=== PATIENT | female | born 1990 | race Caucasian/White ===

== ENCOUNTER → 2025-07-19 10:39 | Outpatient (BNVA) | payer OTHER, SELFPAY | PROVIDERS: Visit Provider Physician Assistant | DX: Z13.89 Encounter for screening for other disorder (principal) | CPT/HCPCS: 99203 ==

== ENCOUNTER → 2025-07-27 09:13 | Outpatient (BNVA) | payer OTHER, SELFPAY | PROVIDERS: Visit Provider Physician Assistant | DX: Z13.89 Encounter for screening for other disorder (principal) | CPT/HCPCS: 99213 ==

== ENCOUNTER 2025-08-14 08:25 | Outpatient (REF) | payer OTHER, SELFPAY ==
--- OUTSIDE RECORDS SUMMARY | 2025-08-14 09:08 | XMS_ITS ---
Author Name [facility] Organization Unknown Care Team Organization Name Specialty Phone Email Start Date End Da te [facility] Ya Church Primary Care 06/24/[address] [facility] Danica Escalera Primary Care 08/25/2022 4
--- OUTSIDE RECORDS SUMMARY | 2025-08-14 09:08 | XMS_ITS | Encounter Summary ---
Author Organization [facility] Address [address] [place] [address] Care Team Providers Care Manager Audit Name Role Phone Ya Church MD Primary Care Provider [phone] Encounter Details Date Type Department Care Team ([facility] st Contact Info) Description 06/30/2025 Lab Requisition [facility] [address] [place] [address] [phone] Ronan Fall MD [address] [place] [address] Other general symptoms and signs Social History Tobacco Use Types Packs/Day Years Used Date Smoking Tobacco: Every Day Cigarettes 0.1 19.8 Started: 2005 Passive Smoke Exposure: Never Smokeless Tobacco: Never Alcohol Use Standard Drinks/Week Comments Yes 0 (1 standard drink = 0.6 oz pur e alcohol) Housing Instability Answer Date Recorde d Are you worried that in the next 2 months you may not have stable housing? No 03/01/2025 Food Access & Nutrition Answer Date Rec orded Do you have access to a vari ety of food including fruits and vegetables? No 03/01/2025 Access to Healthcare Answer Date Record ed Within the last 3 months, ho w many times did you visit the emergency department for your medical care? 0 03/01/2025 Health Literacy Answer Date Recorded How often do you need to hav e someone help you when you read instructions, pamphlets, or other written material from your doctor or pharmacy? Never 03/01/2025 Caregiver: How often do you need to have someone help you when you read instructions, pamphlets, or other written material from your doctor or pharmacy? Not on file 03/01/2025 Financial Risk Answer Date Recorded How hard is it for you to pa y for the very basics like food, housing, medical care, and air conditioning / heating? Very hard 03/01/2025 Transportation Answer Date Recorded Has the lack of transportati on kept you from meetings, work, or from getting things needed for daily living? No Has the lack of transportati on kept you from medical appointments or from getting medications? No 03/01/2025 Social Isolation Answer Date Recorded How often do you feel lonely or isolated from ose around you? Never 03/01/2025 Food Risk Answer Date Recorded Within the past 12 months we worried whether our food would run out before we got money to buy more. Never true 03/01/2025 Within the past 12 months th e food we bought just didn't last and we didn't have money to get more. Never true 03/01/2025 Dependent Care Answer Date Recorded Do you need help finding or paying for care for your loved ones. For example, childcare teacher or elderly care for an older adult? No 03/01/2025 Education Answer Date Recorded Do you think completing more education or training, like finishing a GED, going to college, or learning a trade, would be helpful for you? No 03/01/2025 Employment and Income Answer Date Recor ded During the last four weeks, have you been actively looking for work? No 03/01/2025 Living Situation Answer Date Recorded What is your living situation? Unrecognized valu e 03/01/2025 Comments No Sex and Gender Information Value Date Recorded Sex Assigned at Not on file Legal Sex Female 6:13 PM EST Gender Identity Not on file Sexual Orientation Not on file documented as of this encounter Plan of Treatment Upcoming Encounters Date Type Department Care Team (Late st Contact Info) Description 08/30/2025 8:30 AM EST Office Visit Bariatric Surgery - [address] [place] [address] Codi Vargas MD [address] [place] [phone] 09/11/2025 4:30 PM EST Office Visit Adult Medicine [address] [phone] Ya Church MD [address] [place], [place] documented as of this encounter Procedures Procedure Name Priority Date/Time Associated Diagnosis Comments CBC WITH AUTO DIFFERENTIAL Routine 06/30/2025 11:00 AM EDT Other general symptoms and signs CBC AND DIFFERENTIAL Routine 06/30/2025 11:00 AM EDT Other general symptoms and signs CHOLESTEROL, TOTAL Routine 06/30/2025 11 :00 AM EDT Other general symptoms and signs COMPREHENSIVE METABOLIC PANEL Routine 06/30/2025 11:00 AM EDT Other general symptoms and signs documented in this encounter Results * CBC auto differential (06/30/2025 11:00 AM EDT) WBC LAB HEMETOLOGY METHOD 07/02/2025 2:00 PM EDT [facility] Comment:Corrected result: Pr eviously reported as 6.2 K/mcL on 06/30/2025 at 1442 EDT. RBC LAB HEMETOLOGY METHOD 07/02/2025 2:00 PM EDT [facility] Comment: Incorrect patient Corrected result: Previously reported as 4.92 M/mcL on 06/30/2025 at 1442 EDT. Hemoglobin LAB HEMETOLOGY METHOD 07/02/2025 2:00 PM EDT [facility] Comment: Incorrect patient Corrected result: Previously reported as 14.9 g/dL on 06/30/2025 at 1442 EDT. Hematocrit LAB HEMETOLOGY METHOD 07/02/2025 2:00 PM EDT [facility] Comment: Incorrect patient Corrected result: Previously reported as 44.0 % on 06/30/2025 at 1442 EDT. MCV LAB HEMETOLOGY METHOD 07/02/2025 2:00 PM EDT [facility] Comment: Incorrect patient Corrected result: Previously reported as 89.3 FL on 06/30/2025 at 1442 EDT. MCH LAB HEMETOLOGY METHOD 07/02/2025 2:00 PM EDT [facility] Comment: Incorrect patient Corrected result: Previously reported as 30.3 pcg on 06/30/2025 at 1442 EDT. MCHC LAB HEMETOLOGY METHOD 07/02/2025 2:00 PM EDT [facility] Comment: Incorrect patrient Corrected result: Previously reported as 34.0 g/dL on 06/30/2025 at 1442 EDT. RDW LAB HEMETOLOGY METHOD 07/02/2025 2:00 PM EDT [facility] Comment: Incorrect patient Corrected result: Previously reported as 13.7 % on 06/30/2025 at 1442 EDT. Platelets LAB HEMETOLOGY METHOD 07/02/2025 2:00 PM EDT [facility] Comment: Incorrect patient Corrected result: Previously reported as 308 K/mcL on 06/30/2025 at 1442 EDT. MPV LAB HEMETOLOGY METHOD 07/02/2025 2:00 PM EDT [facility] Comment: Incorrect patient Corrected result: Previously reported as 8.4 FL on 06/30/2025 at 1442 EDT. Neutrophils Relative LAB HEMETOLOGY METHOD 07/02/2025 2:00 PM EDT [facility] Comment:Corrected result: Pr eviously reported as 54.6 % on 06/30/2025 at 1442 EDT. Lymphocytes Relative LAB HEMETOLOGY METHOD 07/02/2025 2:00 PM EDT [facility] Comment:Corrected result: Pr eviously reported as 34.1 % on 06/30/2025 at 1442 EDT. Monocytes Relative LAB HEMETOLOGY METHOD 07/02/2025 2:00 PM EDT [facility] Comment:Corrected result: Pr eviously reported as 7.6 % on 06/30/2025 at 1442 EDT. Eosinophils Relative LAB HEMETOLOGY METHOD 07/02/2025 2:00 PM EDT [facility] Comment:Corrected result: Pr eviously reported as 3.2 % on 06/30/2025 at 1442 EDT. Basophils Relative LAB HEMETOLOGY METHOD 07/02/2025 2:00 PM EDT [facility] Comment:Corrected result: Pr eviously reported as 0.5 % on 06/30/2025 at 1442 EDT. Neutrophils Absolute LAB HEMETOLOGY METHOD 07/02/2025 2:00 PM EDT [facility] Comment:Corrected result: Pr eviously reported as 3.40 K/mcL on 06/30/2025 at 1442 EDT. Lymphocytes Absolute LAB HEMETOLOGY METHOD 07/02/2025 2:00 PM EDT [facility] Comment:Corrected result: Pr eviously reported as 2.10 K/mcL on 06/30/2025 at 1442 EDT. Monocytes Absolute LAB HEMETOLOGY METHOD 07/02/2025 2:00 PM EDT [facility] Comment:Corrected result: Pr eviously reported as 0.50 K/mcL on 06/30/2025 at 1442 EDT. Eosinophils Absolute LAB HEMETOLOGY METHOD 07/02/2025 2:00 PM EDT [facility] Comment:Corrected result: Pr eviously reported as 0.20 K/mcL on 06/30/2025 at 1442 EDT. Basophils Absolute LAB HEMETOLOGY METHOD 07/02/2025 2:00 PM EDT [facility] Comment:Corrected result: Pr eviously reported as 0.00 K/mcL on 06/30/2025 at 1442 EDT. Blood Venous blood specimen / Unknown Venipuncture / Unknown 06/30/2025 11:00 AM EDT 06/30/2025 2:25 PM EDT Narrative [facility] - 07/02/2025 2:00 PM EDT This is a modified report. Previous result was Hemogram + Auto diff on 06/30/2025 at 1442 EDT Ronan Fall MD LAB BLOOD ORDERABLES Edited Result - Final Performing Organization Address [facility] Co de Phone Number [facility] [address] [place] [address], [place] [phone] * Cholesterol, total (06/30/2025 11:00 AM EDT) Cholesterol LAB CHEMISTRY METHOD 07/02/2025 2:25 PM EDT [facility] Comment: Incorrect patient Corrected result: Previously reported as 246 mg/dL on 07/02/2025 at 1408 EDT. Blood Venous blood specimen / Unknown Venipuncture / Unknown 06/30/2025 11:00 AM EDT 06/30/2025 2:25 PM EDT Ronan Fall MD LAB BLOOD ORDERABLES Edited Result - Final Performing Organization Address [facility]/ZIP Co de Phone Number [facility] [address] [place] [address], [place] [phone] * Comprehensive metabolic panel (06/30/2025 11:00 AM EDT) Sodium LAB CHEMISTRY METHOD 07/02/2025 2:14 PM EDT [facility] Comment: Incorrect patient Corrected result: Previously reported as 139 mmol/L on 07/02/2025 at 1408 EDT. Potassium LAB CHEMISTRY METHOD 07/02/2025 2:14 PM EDT [facility] Comment: Specimen Hemolyzed. Recommend Redraw If Clinically Indicated. Corrected result: Previously reported as 4.9 mmol/L on 07/02/2025 at 1408 EDT. Chloride LAB CHEMISTRY METHOD 07/02/2025 2:14 PM EDT [facility] Comment: Incorrect patient Corrected result: Previously reported as 105 mmol/L on 07/02/2025 at 1408 EDT. CO2 LAB CHEMISTRY METHOD 07/02/2025 2:14 PM EDT [facility] Comment: Incorrect patient Corrected result: Previously reported as 28 mmol/L on 07/02/2025 at 1408 EDT. Anion Gap LAB CHEMISTRY METHOD 07/02/2025 2:14 PM EDT [facility] Comment: Incorrect patient Corrected result: Previously reported as 6 on 07/02/2025 at 1408 EDT. Glucose LAB CHEMISTRY METHOD 07/02/2025 2:14 PM EDT [facility] Comment: Specimen Hemolyzed. Recommend Redraw If Clinically Indicated. Corrected result: Previously reported as 92 mg/dL on 07/02/2025 at 1408 EDT. BUN LAB CHEMISTRY METHOD 07/02/2025 2:14 PM EDT [facility] Comment: Incorrect patient Corrected result: Previously reported as 9 mg/dL on 07/02/2025 at 1408 EDT. Creatinine LAB CHEMISTRY METHOD 07/02/2025 2:14 PM EDT [facility] Comment: Incorrect patient Corrected result: Previously reported as 0.40 mg/dL on 07/02/2025 at 1408 EDT. eGFR LAB CHEMISTRY METHOD 07/02/2025 2:14 PM EDT [facility] Comment: Calculation based on the Chronic Kidney Disease Epidemiology Collaboration (CKD- EPI) equation refit without adjustment for race. Corrected result: Previously reported as 131 mL/min/1.73m2 on 07/02/2025 at 1408 EDT. BUN/Creatinine Ratio LAB CHEMISTRY METHOD 07/02/2025 2:14 PM EDT [facility] Comment: Incorrect patient Corrected result: Previously reported as 22.5 on 07/02/2025 at 1408 EDT. Calcium LAB CHEMISTRY METHOD 07/02/2025 2:14 PM EDT [facility] Comment: Incorrect patient Corrected result: Previously reported as 9.9 mg/dL on 07/02/2025 at 1408 EDT. AST (SGOT) LAB CHEMISTRY METHOD 07/02/2025 2:14 PM EDT [facility] Comment: Specimen Hemolyzed. Recommend Redraw If Clinically Indicated. Corrected result: Previously reported as 38 unit/L on 07/02/2025 at 1408 EDT. ALT (SGPT) LAB CHEMISTRY METHOD 07/02/2025 2:14 PM EDT [facility] Comment: Incorrect patient Corrected result: Previously reported as 35 unit/L on 07/02/2025 at 1408 EDT. Alkaline Phosphatase LAB CHEMISTRY METHOD 07/02/2025 2:14 PM EDT [facility] Comment: Incorrect patient Corrected result: Previously reported as 99 unit/L on 07/02/2025 at 1408 EDT. Total Protein LAB CHEMISTRY METHOD 07/02/2025 2:14 PM EDT [facility] Comment: Incorrect patient Corrected result: Previously reported as 7.7 g/dL on 07/02/2025 at 1408 EDT. Globulin, Total LAB CHEMISTRY METHOD 07/02/2025 2:14 PM EDT [facility] Comment: Incorrect patient Corrected result: Previously reported as 3.1 g/dL on 07/02/2025 at 1408 EDT. A/G Ratio LAB CHEMISTRY METHOD 07/02/2025 2:14 PM EDT [facility] Comment: Incorrect patient Corrected result: Previously reported as 1.5 on 07/02/2025 at 1408 EDT. Total Bilirubin LAB CHEMISTRY METHOD 07/02/2025 2:14 PM EDT [facility] Comment: Specimen Hemolyzed. Recommend Redraw If Clinically Indicated. Corrected result: Previously reported as 0.6 mg/dL on 07/02/2025 at 1408 EDT. Albumin LAB CHEMISTRY METHOD 07/02/2025 2:14 PM EDT [facility] Comment: Incorrect patient Corrected result: Previously reported as 4.6 g/dL on 07/02/2025 at 1408 EDT. Blood Venous blood specimen / Unknown Venipuncture / Unknown 06/30/2025 11:00 AM EDT 06/30/2025 2:25 PM EDT Ronan Fall MD LAB BLOOD ORDERABLES Edited Result - Final [facility] [address] [place] [address], documented in this encounter Visit Diagnoses Diagnosis Other general symptoms and signs documented in this encounter Additional Health Concerns Assessment Noted Time PHQ-9 Depression Total Score: 0 03/01/20 9:38 AM EDT documented as of this encounter Care Teams Manager Audit Relationship Specialty Start Date End Date Ya Church MD [address] [place] [phone] PCP - General Internal Medicine 03/01/25 documented as of this encounter
--- OUTSIDE RECORDS SUMMARY | 2025-08-14 09:08 | XMS_ITS | Clinical Summary ---
Author Organization 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 APPLY TOPICALLY 2 TIMES DAILY 60 mL 1 5 Active ciclopirox (PENLAC) 8 % solution Clean the nails with alcohol wipe and apply solution on to the nails and leave it for 7 days. Apply it every 7 days 6.6 mL 5 Active tirzepatide, weight loss, (Zepbound) 10 mg/0.5 mL injection Inject 0.5 mL (10 mg total) under the skin every 7 (seven) days. 2 mL 5 09/07/20 25 Active tirzepatide, weight loss, (Zepbound) 7.5 mg/0.5 mL injection Inject 0.5 mL (7.5 mg total) under the skin every 7 (seven) days. 2 mL 5 07/30/20 25 Discontinu ed(Reorder ) tirzepatide, weight loss, (Zepbound) 7.5 mg/0.5 mL injection Inject 0.5 mL (7.5 mg total) under the skin every 7 (seven) days. 2 mL 5 08/08/20 25 Discontinu ed(Dose adjustment ) Active Problems Problem Noted Date Diagnosed Date Class 2 obesity 07/10/2025 Tobacco use disorder 10/08/2024 Depressive disorder 10/08/2024 Encounters Date Type Department Care Team Description 08/02/2025 Telephone Bariatric Surgery - [address] [place] [address] Codi Vargas MD 06/30/2025 Lab Requisition [facility] [address] [place] [address] ELIGIO Pastrana [phone] Ronan Fall MD Other general symptoms and signs from Last 3 Months Immunizations Immunization Administration Dates Next Due DTP 09/01/1992, 0,09/01/1989,1987,1988 [id number] (Pentacel) 2mo to less than 5yo 09/01/1989 Hepatitis B (Lnomfgf-E-Fkpvg , Recombivax HB-Adult) 19yo and older 04/23/2021,07/14/2001,03/01/2001,2000 Hepatitis B Pediatric (Enger ix B; Recombivax HB) to less than 20 yo 07/14/2001,03/01/2001,01/25/2001 HiB 09/01/1989 Influenza Quadrivalent, 0.5m l, preservative free (Fluarix; FluLaval; Fluzone) ages 6mo and older (Afluria) 3yo and older 07/20/2023,08/24/2022,09/04/2021,2015 Influenza trivalent, 0.5mL, preservative free (Fluarix; FluLaval; Fluzone) ages 6mo and older (Afluria) 3 years and older 07/06/2024,07/22/2011 Influenza trivalent, MDCK, 0 .5mL, preservative free (Flucelvax) 6mo and older 07/08/2025 Influenza trivalent, with preservative (Fluzone; Afluria) 6mo and older 07/22/2011 MMR, measles mumps and rubel la Live (Priorix; M-M-R II) 12mo and older 09/01/1992,09/01/1989 OPV 11/01/1989, 9,1988,1987 PPD Test 09/25/2020,03/06/2015,07/05/2006 Pfizer SARS-CoV-2 COVID-19, mRNA, LNP-S, preservative free 05/18/2021,04/17/2021 Polio, Unspecified 11/01/1989, 9,1988,1987 Td Tetanus diptheria (Tdvax) 7yo and older 01/25/2001 Td, Unspecified 01/25/2001 Tdap Tetanus diptheria acell ular pertussis (Boostrix; Adacel) 7yo and older 01/02/2023,04/02/2020,05/11/2014 Surgical History Surgery Date Site/Laterality Comments CHOLECYSTECTOMY 06/14/2012 PROCEDURE: HISTORICAL CHOLECYSTECTOMY; COMMENT: Dr Son Simpson TUBAL LIGATION Bilateral PROCEDURE: HISTORICAL TUBAL LIGATION PARTIAL HYSTERECTOMY 07/18/2024 - 08/17/2024 Medical History Medical History Date Comments Varicella without mention of complication DX:Varicella without mention of complication Depressive disorder, not els ewhere classified DX:Depressive disorder, not elsewhere classified Tobacco use disorder DX:Tobacco use disorder Type O blood, Rh negative 2019 DX:Typ e O blood, Rh negative Family History Medical History Relation Name Comments No Known Problems Brother 1 No Known Problems Brother 2 Diabetes Father Heart attack Father's side uncle in 30s; other uncle in 50s Alcohol abuse Maternal Grandfather Other: lymphoma Maternal Grandmother ? emmanuel ne cancer Ovarian cancer Maternal Grandmother Thyroid cancer Maternal Grandmother Thyroid disease Mother Alcohol/Drug Other 1 MATERNAL & [place] RNAL SIDE Lung cancer Other 2 greatgrandmothe r;smoker Diabetes Paternal Grandfather Diabetes Paternal Grandmother Lung cancer Paternal Grandmother No Known Problems Sister Breast cancer Neg Hx Colon cancer Neg Hx Uterine cancer Neg Hx Relation Name Status Comments Brother 1 Alive Brother 2 Alive Father Alive Father's side Maternal Grandfather Maternal Grandmother Alive Mother Alive Other 1 Other 2 Paternal Grandfather Paternal Grandmother Sister Alive Social History Tobacco Use Types Packs/Day Years Used Date Smoking Tobacco: Every Day Cigarettes 0.1 19.8 Started: 2006 Passive Smoke Exposure: Never Smokeless Tobacco: Never Tobacco Cessation:Ready to Q uit: Not Asked; Counseling Given: Not Answered Alcohol Use Standard Drinks/Week Comments Yes 0 [...] do you feel lonely or isolated from th ose around you? Never 03/01/2025 Food Risk [...] care for your loved ones. For example, child caregiver private home or elderly care for an older adult? [...] on file Sexual Orientation Not on file Obstetrics History Last Filed Vital Signs Vital Sign Reading Time Taken Comments Blood Pressure 116/70 05/10/2025 1:25 PM EDT Pulse 86 05/10/2025 1:25 PM EDT Temperature 35.9 C (96.6 F) 05/10/2025 1:25 PM EDT Respiratory Rate 18 05/10/2025 1:25 PM EDT Oxygen Saturation - - Inhaled Oxygen Concentration - - Weight 95.7 kg (211 lb) 05/10/2025 1:25 PM EDT Height 152.4 cm (5') 05/10/2025 1:25 PM EDT Body Mass Index 41.21 05/10/2025 1:25 PM EDT Plan of Treatment Upcoming Encounters Date Type Department Care Team (Late st Contact Info) Description 08/30/2025 8:30 AM EST Office Visit Bariatric Surgery - [address] [place] [address] Codi Vargas MD [address] [place] [phone] 09/11/2025 4:30 PM EST Office Visit Adult Medicine [address] [phone] Ya Church MD [address] [place] [phone] Health Maintenance Due Date Last Done Comments Pneumococcal Vaccine: Pediatrics (0 to 5 Years) and At-Risk Patients (6 to 49 Years) (1 of 2 - PCV) 01/16/2007 HPV Vaccines (1 - 3-dose SCDM series) 01/16/2015 COVID-19 Vaccine ( season) 2025 03/26/2022, 05/18/2021, 04/17/2021, Additional history exists Social Influencers of Health Screening 03/01/2026 03/01/2025 Cholesterol Screening (Lipid Panel) 06/30/2030 06/30/2025, 03/01/2025, 02/02/2023 DTaP,Tdap,and Td Vaccines (10 - Td or Tdap) 01/02/2033 01/02/2023, 04/02/2020, 05/11/2014, Additional history exists RSV Immunization Adult Patients (1 - 1-dose 75+ series) 01/16/2063 HIB Vaccines Completed 09/01/1989, 09/01/1989 IPV Vaccines Completed 11/01/1989, 10/18, 09/01/1989, Additional history exists MMR Vaccines Completed 09/01/1992, 09/01/1989 Hepatitis C Screening Completed 07/01/2017 HIV Screening Completed 10/23/2019 Hepatitis B Vaccines Completed 04/23/2021, 07/14/2001, 07/14/2001, Additional history exists Cervical Cancer Screening: Pap Smear Discontinued 10/26/2022, 11/23/2019 Depression Screening Completed 03/01/2025, 02/03/20 23 Influenza Vaccine Completed 07/08/2025, , 07/20/2023, Additional history exists Hepatitis A Vaccines Aged Out No long er eligible based on patient's age to complete this topic Meningococcal ACWY Vaccine Aged Out N o longer eligible based on patient's age to complete this topic Meningococcal B Vaccine Aged Out No l onger eligible based on patient's age to complete this topic RSV Immunization Patients Under 20 months Aged Out No longer eligible based on patient's age to complete this topic Varicella Vaccines Aged Out No longer eligible based on patient's age to complete this topic Procedures Procedure Name Priority Date/Time Associated Diagnosis Comments CBC WITH AUTO DIFFERENTIAL Routine 06/30/2025 11:00 AM EDT Other general symptoms and signs CBC AND DIFFERENTIAL Routine 06/30/2025 11:00 AM EDT Other general symptoms and signs CHOLESTEROL, TOTAL Routine 06/30/2025 11 :00 AM EDT Other general symptoms and signs COMPREHENSIVE METABOLIC PANEL Routine 06/30/2025 11:00 AM EDT Other general symptoms and signs DEPRESSION SCREENING Routine 02/02/2023 PAP SMEAR Routine 10/26/2022 HIV SCREENING Routine 10/23/2019 HEPATITIS C SCREENING Routine 07/01/2017 from Last 3 Months or Most Recently Relevant to Health Maintenance Results * CBC auto differential (06/30/2025 11:00 AM EDT) WBC LAB HEMETOLOGY METHOD 07/02/2025 2:00 PM EDT [facility] Comment:Corrected result: Pr eviously reported as 6.2 K/mcL on 06/30/2025 at 1442 EDT. RBC LAB HEMETOLOGY METHOD 07/02/2025 2:00 PM EDT [facility] Comment: Incorrect patient Corrected result: Previously reported as 4.92 M/mcL on 06/30/2025 at 1442 EDT. Hemoglobin LAB HEMETOLOGY METHOD 07/02/2025 2:00 PM EDT [facility] Comment: Incorrect patient Corrected result: Previously reported as 14.9 g/dL on 06/30/2025 at 1442 EDT. Hematocrit LAB HEMETOLOGY METHOD 07/02/2025 2:00 PM EDT [facility] Comment: Incorrect patient Corrected result: Previously reported as 44.0 % on 06/30/2025 at 1442 EDT. MCV LAB HEMETOLOGY METHOD 07/02/2025 2:00 PM EDT [facility] Comment: Incorrect patient Corrected result: Previously reported as 89.3 FL on 06/30/2025 at 1442 EDT. MCH LAB HEMETOLOGY METHOD 07/02/2025 2:00 PM EDT [facility] Comment: Incorrect patient Corrected result: Previously reported as 30.3 pcg on 06/30/2025 at 1442 EDT. MCHC LAB HEMETOLOGY METHOD 07/02/2025 2:00 PM EDT [facility] Comment: Incorrect patrient Corrected result: Previously reported as 34.0 g/dL on 06/30/2025 at 1442 EDT. RDW LAB HEMETOLOGY METHOD 07/02/2025 2:00 PM EDT [facility] Comment: Incorrect patient Corrected result: Previously reported as 13.7 % on 06/30/2025 at 1442 EDT. Platelets LAB HEMETOLOGY METHOD 07/02/2025 2:00 PM EDT [facility] Comment: Incorrect patient Corrected result: Previously reported as 308 K/mcL on 06/30/2025 at 1442 EDT. MPV LAB HEMETOLOGY METHOD 07/02/2025 2:00 PM EDT [facility] Comment: Incorrect patient Corrected result: Previously reported as 8.4 FL on 06/30/2025 at 1442 EDT. Neutrophils Relative LAB HEMETOLOGY METHOD 07/02/2025 2:00 PM EDT [facility] Comment:Corrected result: Pr eviously reported as 54.6 % on 06/30/2025 at 1442 EDT. Lymphocytes Relative LAB HEMETOLOGY METHOD 07/02/2025 2:00 PM EDT [facility] Comment:Corrected result: Pr eviously reported as 34.1 % on 06/30/2025 at 1442 EDT. Monocytes Relative LAB HEMETOLOGY METHOD 07/02/2025 2:00 PM EDT [facility] Comment:Corrected result: Pr eviously reported as 7.6 % on 06/30/2025 at 1442 EDT. Eosinophils Relative LAB HEMETOLOGY METHOD 07/02/2025 2:00 PM EDT [facility] Comment:Corrected result: Pr eviously reported as 3.2 % on 06/30/2025 at 1442 EDT. Basophils Relative LAB HEMETOLOGY METHOD 07/02/2025 2:00 PM EDT [facility] Comment:Corrected result: Pr eviously reported as 0.5 % on 06/30/2025 at 1442 EDT. Neutrophils Absolute LAB HEMETOLOGY METHOD 07/02/2025 2:00 PM EDT [facility] Comment:Corrected result: Pr eviously reported as 3.40 K/mcL on 06/30/2025 at 1442 EDT. Lymphocytes Absolute LAB HEMETOLOGY METHOD 07/02/2025 2:00 PM EDT [facility] Comment:Corrected result: Pr eviously reported as 2.10 K/mcL on 06/30/2025 at 1442 EDT. Monocytes Absolute LAB HEMETOLOGY METHOD 07/02/2025 2:00 PM EDT [facility] Comment:Corrected result: Pr eviously reported as 0.50 K/mcL on 06/30/2025 at 1442 EDT. Eosinophils Absolute LAB HEMETOLOGY METHOD 07/02/2025 2:00 PM EDT [facility] Comment:Corrected result: Pr eviously reported as 0.20 K/mcL on 06/30/2025 at 1442 EDT. Basophils Absolute LAB HEMETOLOGY METHOD 07/02/2025 2:00 PM EDT [facility] Comment:Corrected result: Pr eviously reported as 0.00 K/mcL on 06/30/2025 at 1442 EDT. Blood Venous blood specimen / Unknown Venipuncture / Unknown 06/30/2025 11:00 AM EDT 06/30/2025 2:25 PM EDT Narrative [facility] - 07/02/2025 2:00 PM EDT This is a modified report. Previous result was Hemogram + Auto diff on 06/30/2025 at 1442 EDT Ronan Fall MD LAB BLOOD ORDERABLES Edited Result - Final Performing Organization Address [facility]/ZIP Co de Phone Number [facility] [address] [place] [address], [place] [phone] * Cholesterol, total (06/30/2025 11:00 AM EDT) [facility] Cholesterol LAB CHEMISTRY METHOD 07/02/2025 2:25 PM EDT [facility] Comment: Incorrect patient Corrected result: Previously reported as 246 mg/dL on 07/02/2025 at 1408 EDT. Blood Venous blood specimen / Unknown Venipuncture / Unknown 06/30/2025 11:00 AM EDT 06/30/2025 2:25 PM EDT Ronan Fall MD LAB BLOOD ORDERABLES Edited Result - Final Performing Organization Address [facility]/ZIP Co de Phone Number [facility] [address] [place] [address], [place] [phone] * Comprehensive metabolic panel (06/30/2025 11:00 AM EDT) [facility] Sodium LAB CHEMISTRY METHOD 07/02/2025 2:14 PM EDT [facility] Comment: Incorrect patient Corrected result: Previously reported as 139 mmol/L on 07/02/2025 at 1408 EDT. Potassium LAB CHEMISTRY METHOD 07/02/2025 2:14 PM EDT [facility] Comment: Specimen Hemolyzed. Recommend Redraw If Clinically Indicated. Corrected result: Previously reported as 4.9 mmol/L on 07/02/2025 at 1408 EDT. Chloride LAB CHEMISTRY METHOD 07/02/2025 2:14 PM EDT [facility] Comment: Incorrect patient Corrected result: Previously reported as 105 mmol/L on 07/02/2025 at 1408 EDT. CO2 LAB CHEMISTRY METHOD 07/02/2025 2:14 PM EDT [facility] Comment: Incorrect patient Corrected result: Previously reported as 28 mmol/L on 07/02/2025 at 1408 EDT. Anion Gap LAB CHEMISTRY METHOD 07/02/2025 2:14 PM EDT [facility] Comment: Incorrect patient Corrected result: Previously reported as 6 on 07/02/2025 at 1408 EDT. Glucose LAB CHEMISTRY METHOD 07/02/2025 2:14 PM EDT [facility] Comment: Specimen Hemolyzed. Recommend Redraw If Clinically Indicated. Corrected result: Previously reported as 92 mg/dL on 07/02/2025 at 1408 EDT. BUN LAB CHEMISTRY METHOD 07/02/2025 2:14 PM EDT [facility] Comment: Incorrect patient Corrected result: Previously reported as 9 mg/dL on 07/02/2025 at 1408 EDT. Creatinine LAB CHEMISTRY METHOD 07/02/2025 2:14 PM EDT [facility] Comment: Incorrect patient Corrected result: Previously reported as 0.40 mg/dL on 07/02/2025 at 1408 EDT. eGFR LAB CHEMISTRY METHOD 07/02/2025 2:14 PM EDT [facility] Comment: Calculation based on the Chronic Kidney Disease Epidemiology Collaboration (CKD- EPI) equation refit without adjustment for race. Corrected result: Previously reported as 131 mL/min/1.73m2 on 07/02/2025 at 1408 EDT. BUN/Creatinine Ratio LAB CHEMISTRY METHOD 07/02/2025 2:14 PM EDT [facility] Comment: Incorrect patient Corrected result: Previously reported as 22.5 on 07/02/2025 at 1408 EDT. Calcium LAB CHEMISTRY METHOD 07/02/2025 2:14 PM EDT [facility] Comment: Incorrect patient Corrected result: Previously reported as 9.9 mg/dL on 07/02/2025 at 1408 EDT. AST (SGOT) LAB CHEMISTRY METHOD 07/02/2025 2:14 PM EDT [facility] Comment: Specimen Hemolyzed. Recommend Redraw If Clinically Indicated. Corrected result: Previously reported as 38 unit/L on 07/02/2025 at 1408 EDT. ALT (SGPT) LAB CHEMISTRY METHOD 07/02/2025 2:14 PM EDT [facility] Comment: Incorrect patient Corrected result: Previously reported as 35 unit/L on 07/02/2025 at 1408 EDT. Alkaline Phosphatase LAB CHEMISTRY METHOD 07/02/2025 2:14 PM EDT [facility] Comment: Incorrect patient Corrected result: Previously reported as 99 unit/L on 07/02/2025 at 1408 EDT. Total Protein LAB CHEMISTRY METHOD 07/02/2025 2:14 PM EDT [facility] Comment: Incorrect patient Corrected result: Previously reported as 7.7 g/dL on 07/02/2025 at 1408 EDT. Globulin, Total LAB CHEMISTRY METHOD 07/02/2025 2:14 PM EDT [facility] Comment: Incorrect patient Corrected result: Previously reported as 3.1 g/dL on 07/02/2025 at 1408 EDT. A/G Ratio LAB CHEMISTRY METHOD 07/02/2025 2:14 PM EDT [facility] Comment: Incorrect patient Corrected result: Previously reported as 1.5 on 07/02/2025 at 1408 EDT. Total Bilirubin LAB CHEMISTRY METHOD 07/02/2025 2:14 PM EDT [facility] Comment: Specimen Hemolyzed. Recommend Redraw If Clinically Indicated. Corrected result: Previously reported as 0.6 mg/dL on 07/02/2025 at 1408 EDT. Albumin LAB CHEMISTRY METHOD 07/02/2025 2:14 PM EDT [facility] Comment: Incorrect patient Corrected result: Previously reported as 4.6 g/dL on 07/02/2025 at 1408 EDT. Blood Venous blood specimen / Unknown Venipuncture / Unknown 06/30/2025 11:00 AM EDT 06/30/2025 2:25 PM EDT Ronan Fall MD LAB BLOOD ORDERABLES Edited Result - Final [facility] [address] [place] [address], * Depression Screening (02/02/2023) Pathologist [facility] Depression Screening abstracted Historical Provider HEALTH MAINTENANCE Final Result * Pap Smear (10/26/2022) Pathologist [facility] Pap smear abstracted, no interpretation Result [facility] Historical Provider HEALTH MAINTENANCE Final Result * HIV Screening (10/23/2019) [facility] HIV Screening abstracted Result [facility] Historical Provider HEALTH MAINTENANCE Final Result * Hepatitis C Screening (07/01/2017) [facility] Hepatitis C Screening abstracted Historical Provider HEALTH MAINTENANCE Final Result from Last 3 Months or Most Recently Relevant to Health Maintenance Insurance [facility] Care Teams Cattle Rancher Relationship Specialty Start Date End Date Ya Church MD [address] [place] [phone] PCP - General Internal Medicine 03/01/25
[2025-08-15 03:58] LABS: Follicle Stimulating Hormone 54.1 mIU/mL
[2025-08-30 04:23] LABS: Estradiol Free 0.14 pg/mL; Estradiol, Ultrasensitive 9 pg/mL
== END 2025-08-14 08:26 | disposition home or self-care (01) ==
LOC: HO.HKASLDS 08:25
PROVIDERS: PCP Internal Medicine; Visit Provider Obstetrics & Gynecology
DX: N95.1 Menopausal and female climacteric states (principal)
CPT/HCPCS: 36415; 82670; 82681; 83001; 83002

== ENCOUNTER 2025-09-10 08:03 | Outpatient (RCR) | payer OTHER, SELFPAY ==
--- NOTE | 2025-07-23 08:10 | MHC.PT.EP ---
[facility] [place] [facility] [place] Office [place] Office [address] López Blas [address] [phone] F: [phone] F: [phone] F: [phone] F: [phone] Physical Therapy Plan of Care Date of Evaluation: 07/20/25 Date of Surgery: Diagnosis: Rhomboid/Trap strain signed by Christina Yepez, [facility] 2-3/xweek x 4 weeks PRN Date of onset 07/17/25 Assessment: Pt is a 35 y/o female, referred to PT, Rhomboid/Trap strain signed by Christina Yepez, [facility] 2-3/xweek x 4 weeks PRN Date of onset 07/17/25. Pt expresses pain medial border of scapula along rhomboid and left upper trap. She acknowledges she was not using optimum body mechanics when attempting to change the water bubbler and will benefit from this body mechanics review/ education in conjunction with treatment of her strain/postural program. Chelle will benefit from attending skilled PT at a frequency of 2x/week x 4 weeks to address impairments, implement HEP, and restore functional mobility. She exhibits excellent rehab prognosis. Frequency and Duration: The patient will be seen 2x/week x 4 weeks Short Term Goals: 1. Pt will initiate self care management/ HEP program. 2. Chelle will increase L cervical AROM by 25%. 3. Chelle will increase R cervical side-bend by 25%. 4. Pt will demonstrate improvement in SPADI score. 5. Pt will be initiated in body mechanics education to reduce future risk of work injury. 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 Pt will demonstrate L>R cervical rotation to 70 degrees. 2. Pt will demonstrate reduction in left lateral shoulder upper trap sx. 3. Pt will return to work full duty with good body mechanics. 4. Pt will demonstrate functional AROM of the L LE to mirror her R UE. 5. Sleep positions and cervical body positioning MOD I. Treatment Plan: Modalities to reduce pain, spasms and effusion. Manual therapy to restore motion and function. Therapeutic exercise to improve strength and flexibility. Neuromuscular re-education for posture and balance. Therapeutic activities to return to functional activities of daily living. Electronically signed by: Zoe Bryant PT, DPT Please sign and return to therapist. Thank you for your referral.
--- NOTE | 2025-07-27 08:58 | MHC.PT.OD ---
[facility] [place] [facility] [place] Office [address] [place] [address] [address] [phone] F: [phone] F: [phone] F: [phone] Physical Therapy Daily Note Diagnosis: Rhomboid/Trap strain signed by Christina Yepez, [facility] 2-3/xweek x 4 weeks PRN Date of onset 07/17/25 Date of Surgery: Date of Evaluation: 07/20/25 Date of Treatment: 07/27/25 Treatments to Date: Cancellations to Date: No Shows to Date: Authorized Visits: 3 Insurance End Date: Precautions/ Contraindications: Subjective: States she has not been needing the naproxen in the evening. She has an appt at [facility] after today. Pain Score and Location: 4 Objective Flowsheet: Tests & Measures see eval Exercises Upper trap stretch x 20 sec hold x 4R L, levator scap x 20 sec hold x 4R, AAROM cane flexion in supine x 10 sec hold x 5R reviewed verbally today. AAROM cane flexion in supine 5R AAROM cane scaption x 10 sec hold x 5R, rows with YTB x 2 sets 10R, shoulder extension with YTB x 2 sets 10R. Issued YTB for home. ROCKTAPE I strip support applied for L>R UT/L>R periscap for support. Handout given CORE ROCKTAPE education for removal, indications, goals to improve patient carryover. STM/IASTM to L UT musculature with mild erythema response using HG#8 in effort to increase tissue extensibility. Modalities MHP applied to C/S and upper back x 15 minutes for warm-up with [place] TENS CH1/Ch2 cross-patterned intensity 10mA in effort to reduce pain setting TENS #1 start of session pre exercise. Skin intact pre/post removal. Assessment: 07/27/25:Chelle has attended 3 session of PT to date, expressing some improvement/reduction in L UT/rhomboid sx. She has been initiated in AAROM activities and pec stretcheing. Today we initiated some gentle periscap strengthening with YTB (issued for home). She was encouraged to keep stretching. She notes a reduction in need for taking naproxen. Will continue to progress postural strengthening/ROM with addition of body mechanics training in future visits. She will be seeing [facility] this morning for a follow up. Pt is a 35 y/o female, referred to PT, Rhomboid/Trap strain signed by Christina Yepez, [facility] 2-3/xweek x 4 weeks PRN Date of onset 07/17/25. Pt expresses pain medial border of scapula along rhomboid and left upper trap. She acknowledges she was not using optimum body mechanics when attempting to change the water bubbler and will benefit from this body mechanics review/ education in conjunction with treatment of her strain/postural program. Chelle will benefit from attending skilled PT at a frequency of 2x/week x 4 weeks to address impairments, implement HEP, and restore functional mobility. She exhibits excellent rehab prognosis. PT Plan: Progress periscap/postural strengthening with body mechanics training focus for future Short Term Goals: 1. Pt will initiate self care management/ HEP program. 2. Chelle will increase L cervical AROM by 25%. 3. Chelle will increase R cervical side-bend by 25%. 4. Pt will demonstrate improvement in SPADI score. 5. Pt will be initiated in body mechanics education to reduce future risk of work injury. 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 Pt will demonstrate L>R cervical rotation to 70 degrees. 2. Pt will demonstrate reduction in left lateral shoulder upper trap sx. 3. Pt will return to work full duty with good body mechanics. 4. Pt will demonstrate functional AROM of the L LE to mirror her R UE. 5. Sleep positions and cervical body positioning MOD I. Electronically signed by: Zoe Bryant, PT, DPT
== END 2025-09-10 09:58 | disposition home or self-care (01) ==
LOC: HO.PTS 08:03
PROVIDERS: Visit Provider Physician Assistant
DX: S29.012D Strain of muscle and tendon of back wall of thorax, subsequent encounter (principal); S46.812D Strain of other muscles, fascia and tendons at shoulder and upper arm level, left arm, subsequent encounter
CPT/HCPCS: 97014; 97035; 97110; 97140; 97161

== ENCOUNTER 2025-09-25 11:36 | Outpatient (REF) | payer OTHER, SELFPAY ==
[2025-09-25 14:59] LABS: Alanine Aminotransferase 86 U/L (0-31); Albumin Level 4.4 g/dL (3.5-5.0); Alkaline Phosphatase 63 U/L (39-117); Anion Gap 10 (12-20); Aspartate Amino Transferase 44 U/L (5-31); Blood Urea Nitrogen 9 mg/dL (9-16); Calcium 9.4 mg/dL (8.4-10.2); Carbon Dioxide 26 mmol/L (22-29); Chloride 108 mmol/L (96-108); Cholesterol 194 mg/dL (<200); Estimated Glomerular Filt Rate > 60; HDL Cholesterol 34 mg/dL (>40); Potassium 4.4 mmol/L (3.3-5.1); Sodium 140 mmol/L (135-145); Total Protein 6.8 g/dL (6.5-8.0); Triglycerides 83 mg/dL (<150)
[2025-09-25 15:22] LABS: Reflex LDLD? No
== END 2025-09-25 11:37 | disposition home or self-care (01) ==
LOC: HO.HKASLDS 11:36
PROVIDERS: PCP Internal Medicine; Visit Provider Internal Medicine
DX: E04.1 Nontoxic single thyroid nodule (principal); E78.00 Pure hypercholesterolemia, unspecified; E55.9 Vitamin D deficiency, unspecified
CPT/HCPCS: 36415; 80053; 80061; 82652; 84443; 84481

== ENCOUNTER 2025-10-08 08:01 | Outpatient (AMB) | payer OTHER, SELFPAY ==
--- OUTSIDE RECORDS SUMMARY | 2025-10-08 08:04 | XMS_ITS | Clinical Summary ---
Author Organization [facility] Address [address] [place], [place] [phone] Phone Care Team Providers Care Production Consultant Name Role Phone Unknown, Unknown Primary Care Provider [place] for[place] Allergies No known active allergies Medications ibuprofen (ADVIL,MOTRIN) 800 MG tablet Take 1 tablet (800 mg total) by mouth every 8 (eight) hours as needed for pain (specific location in comments) (moderate pain). 30 tablet 12/04/2023 Active pseudoephedrine (SUDAFED) 30 MG tablet Take 1 tablet (30 mg total) by mouth every 4 (four) hours as needed for congestion. 30 tablet 07/15/2024 Active albuterol 90 mcg/actuation inhaler Inhale 2 puffs into the lungs every 6 (six) hours as needed. 18 g 07/15/2024 Active neomycin-polymy rolando B-hydrocortison e (CORTOMYCIN) 3.5-10,000-1 mg/mL-unit/mL-% otic suspension 3 drops by Each Ear route 4 (four) times a day. 10 mL 07/15/2024 Active Active Problems No known active problems Immunizations Immunization Administration Dates Next Due COVID-19 (Pre-08/09) Pfizer Vaccine, mRNA, PF 03/26/2022,05/18/2021,04/17/2021,2020,03/09/2021 DTP 09/01/1992, 0,09/01/1989,1987,1988 Hepatitis B Adult 04/23/2021, 1,03/01/2001,2000 Hepatitis B, unspecified formulation 07/14/2001, 03/01/2001,01/25/2001 Hib, unspecified formulation 09/01/1989 Hib,HbOC 09/01/1989 INFLUENZA, SPLIT VIRUS, TRIVALENT PF 07/06/2024 INFLUENZA, SPLIT VIRUS, TRIV ALENT W/ PRESERVATIVE IM 07/22/2011 Influenza Quadrivalent Prese rvative Free IM 07/20/2023,07/20/2023,08/24/2022,2021,09/04/2021,07/31/2016 MMR 09/01/1992,09/01/1989 PPD Test 09/25/2020,03/06/2015,07/05/2006 Polio - OPV 11/01/1989, 9,1988,1987 Polio, Unspecified Formulation 0,09/01/1989,1988,1987 Td (adult),2 Lf Tetanus Toxo id, PF, Adsorbed 01/25/2001 Td, unspecified formulation 01/25/2001 Tdap 01/02/2023,04/02/2020,05/11/2014 Social History Tobacco Use Types Packs/Day Years Used Date Smoking Tobacco: Never Assessed Education Answer Date Recorded Are you interested in more education? Not on renae e 02/13/2023 Are you concerned about learning? Not on file 02/13/2023 No 02/13/2023 No 02/13/2023 Digital Access Answer Date Recorded No 03/14/2023 No 03/14/2023 Reliable internet access at home? Not on file 03/14/2023 Device with a working camera? Not on file Comments Unknown Sex and Gender Information Value Date Recorded Sex Assigned at Not on file Legal Sex Female 2:52 PM EDT Gender Identity Not on file Sexual Orientation Not on file Last Filed Vital Signs Vital Sign Reading Time Taken Comments Blood Pressure 108/76 04/08/2024 12:11 PM EDT Pulse 77 04/08/2024 12:11 PM EDT Temperature 37.1 C (98.7 F) 07/15/2024 4:51 PM EDT Respiratory Rate - - Oxygen Saturation 98% 07/15/2024 4:51 PM EDT Inhaled Oxygen Concentration - - Weight - - Height - - Body Mass Index - - Plan of Treatment Health Maintenance Due Date Last Done Comments DEPRESSION SCREENING 2000 SMOKING Hx and SMOKELESS TOBACCO SCREENING 01/16/2001 HEPATITIS C SCREENING 01/16/2006 HIV ONE-TIME SCREENING (18-65 YEARS) 01/16/2006 PAP SMEAR 11/23/2022 11/23/2019 INFLUENZA VACCINE (#1) 2025 , 07/20/2023, 07/20/2023, Additional history exists COVID-19 VACCINE (2024- season) 2025 03/26/2022, 03/26/2022, 05/18/2021, Additional history exists Adult Td,Tdap Booster 01/02/2033 01/02/2023 , 04/02/2020, 05/11/2014, Additional history exists HIB VACCINES Completed 09/01/1989, 09/01/1989 HEPATITIS A VACCINES Aged Out No long er eligible based on patient's age to complete this topic MENINGOCOCCAL VACCINES (ACWY) Aged Out No longer eligible based on patient's age to complete this topic MENINGOCOCCAL VACCINES (B) Aged Out N o longer eligible based on patient's age to complete this topic PNEUMOCOCCAL VACCINES (0-49 years) Aged Out No longer eligible based on patient's age to complete this topic Medical Devices Not on file Insurance [employer] [facility] Care Teams Production Consultant Relationship Specialty Start Date End Date Unknown, Unknown, PCP - General 08/24/22 Additional Source Comments The information contained in this document represents components of the legal health record. It is not the complete legal health record.[facility]
--- OUTSIDE RECORDS SUMMARY | 2025-10-08 08:04 | XMS_ITS | Encounter Summary ---
Author Organization [facility] Address [address] [place] [address] Care Team Providers Care Business Office Director Name Role Phone Ya Church MD Primary Care Provider [phone] Encounter Details Date Type Department Care Team ([facility] st Contact Info) Description 06/30/2025 Lab Requisition [facility] [address] [place] [phone] Ronan Fall MD [address] [place] [address] Other general symptoms and signs Social History Tobacco Use Types Packs/Day Years Used Date Smoking Tobacco: Every Day Cigarettes 0.1 20 Started: 2005 Passive Smoke Exposure: Never Smokeless [...] care for your loved ones. For example, rn child or elderly care for an older adult? [...] Care Team (Late st Contact Info) Description 03/19/2026 9:45 AM EDT Office Visit Bariatric Surgery - [address] [place] [address] Codi Vargas MD [address] [place] [phone] 05/01/2026 3:00 PM EDT Office Visit Adult Medicine [address] [phone] Ya Church MD [address] [place], [place] documented as of this encounter Procedures [...] LAB HEMETOLOGY METHOD 07/02/2025 2:00 PM EDT [facility] Comment:Corrected result: Pr eviously reported as 6.2 K/mcL on 06/30/2025 at 1442 EDT. RBC LAB HEMETOLOGY METHOD 07/02/2025 2:00 PM EDT [facility] Comment: Incorrect patient Corrected result: Previously reported as 4.92 M/mcL on 06/30/2025 at 1442 EDT. Hemoglobin LAB HEMETOLOGY METHOD 07/02/2025 2:00 PM EDT [facility] Comment: Incorrect patient Corrected result: Previously reported as 14.9 g/dL on 06/30/2025 at 1442 EDT. Hematocrit LAB HEMETOLOGY METHOD 07/02/2025 2:00 PM EDT [facility] Comment: Incorrect patient Corrected result: Previously reported as 44.0 % on 06/30/2025 at 1442 EDT. MCV LAB HEMETOLOGY METHOD 07/02/2025 2:00 PM EDT [facility] Comment: Incorrect patient Corrected result: Previously reported as 89.3 FL on 06/30/2025 at 1442 EDT. MCH LAB HEMETOLOGY METHOD 07/02/2025 2:00 PM EDT [facility] Comment: Incorrect patient Corrected result: Previously reported as 30.3 pcg on 06/30/2025 at 1442 EDT. MCHC LAB HEMETOLOGY METHOD 07/02/2025 2:00 PM EDT [facility] Comment: Incorrect patrient Corrected result: Previously reported as 34.0 g/dL on 06/30/2025 at 1442 EDT. RDW LAB HEMETOLOGY METHOD 07/02/2025 2:00 PM EDT [facility] Comment: Incorrect patient Corrected result: Previously reported as 13.7 % on 06/30/2025 at 1442 EDT. Platelets LAB HEMETOLOGY METHOD 07/02/2025 2:00 PM EDT [facility] Comment: Incorrect patient Corrected result: Previously reported as 308 K/mcL on 06/30/2025 at 1442 EDT. MPV LAB HEMETOLOGY METHOD 07/02/2025 2:00 PM EDT [facility] Comment: Incorrect patient Corrected result: Previously reported as 8.4 FL on 06/30/2025 at 1442 EDT. Neutrophils Relative LAB HEMETOLOGY METHOD 07/02/2025 2:00 PM EDT [facility] Comment:Corrected result: Pr eviously reported as 54.6 % on 06/30/2025 at 1442 EDT. Lymphocytes Relative LAB HEMETOLOGY METHOD 07/02/2025 2:00 PM EDT [facility] Comment:Corrected result: Pr eviously reported as 34.1 % on 06/30/2025 at 1442 EDT. Monocytes Relative LAB HEMETOLOGY METHOD 07/02/2025 2:00 PM EDT [facility] Comment:Corrected result: Pr eviously reported as 7.6 % on 06/30/2025 at 1442 EDT. Eosinophils Relative LAB HEMETOLOGY METHOD 07/02/2025 2:00 PM EDT [facility] Comment:Corrected result: Pr eviously reported as 3.2 % on 06/30/2025 at 1442 EDT. Basophils Relative LAB HEMETOLOGY METHOD 07/02/2025 2:00 PM EDT [facility] Comment:Corrected result: Pr eviously reported as 0.5 % on 06/30/2025 at 1442 EDT. Neutrophils Absolute LAB HEMETOLOGY METHOD 07/02/2025 2:00 PM EDT [facility] Comment:Corrected result: Pr eviously reported as 3.40 K/mcL on 06/30/2025 at 1442 EDT. Lymphocytes Absolute LAB HEMETOLOGY METHOD 07/02/2025 2:00 PM EDT [facility] Comment:Corrected result: Pr eviously reported as 2.10 K/mcL on 06/30/2025 at 1442 EDT. Monocytes Absolute LAB HEMETOLOGY METHOD 07/02/2025 2:00 PM EDT [facility] Comment:Corrected result: Pr eviously reported as 0.50 K/mcL on 06/30/2025 at 1442 EDT. Eosinophils Absolute LAB HEMETOLOGY METHOD 07/02/2025 2:00 PM EDT [facility] Comment:Corrected result: Pr eviously reported as 0.20 K/mcL on 06/30/2025 at 1442 EDT. Basophils Absolute LAB HEMETOLOGY METHOD 07/02/2025 2:00 PM EDT [facility] Comment:Corrected result: Pr eviously reported as 0.00 K/mcL on 06/30/2025 at 1442 EDT. Blood Venous blood specimen / Unknown Venipuncture / Unknown 06/30/2025 11:00 AM EDT 06/30/2025 2:25 PM EDT Narrative [facility] - 07/02/2025 2:00 PM EDT This is a modified report. Previous result was Hemogram + Auto diff on 06/30/2025 at 1442 EDT Ronan Fall MD LAB BLOOD ORDERABLES Edited Result - Final Performing Organization Address [facility] Co de Phone Number [facility] [address] [place] [address], [place] [phone] * Cholesterol, total (06/30/2025 11:00 AM EDT) Cholesterol LAB CHEMISTRY METHOD 07/02/2025 2:25 PM EDT [facility] Comment: Incorrect patient Corrected result: Previously reported as 246 mg/dL on 07/02/2025 at 1408 EDT. Blood Venous blood specimen / Unknown Venipuncture / Unknown 06/30/2025 11:00 AM EDT 06/30/2025 2:25 PM EDT Ronan Fall MD LAB BLOOD ORDERABLES Edited Result - Final Performing Organization Address [facility]/ZIP Co de Phone Number [facility] [address] [place] [address], [place] [phone] * Comprehensive metabolic panel (06/30/2025 11:00 AM EDT) Sodium LAB CHEMISTRY METHOD 07/02/2025 2:14 PM EDT [facility] Comment: Incorrect patient Corrected result: Previously reported as 139 mmol/L on 07/02/2025 at 1408 EDT. Potassium LAB CHEMISTRY METHOD 07/02/2025 2:14 PM EDT [facility] Comment: Specimen Hemolyzed. Recommend Redraw If Clinically Indicated. Corrected result: Previously reported as 4.9 mmol/L on 07/02/2025 at 1408 EDT. Chloride LAB CHEMISTRY METHOD 07/02/2025 2:14 PM EDT [facility] Comment: Incorrect patient Corrected result: Previously reported as 105 mmol/L on 07/02/2025 at 1408 EDT. CO2 LAB CHEMISTRY METHOD 07/02/2025 2:14 PM EDT [facility] Comment: Incorrect patient Corrected result: Previously reported as 28 mmol/L on 07/02/2025 at 1408 EDT. Anion Gap LAB CHEMISTRY METHOD 07/02/2025 2:14 PM EDT [facility] Comment: Incorrect patient Corrected result: Previously reported as 6 on 07/02/2025 at 1408 EDT. Glucose LAB CHEMISTRY METHOD 07/02/2025 2:14 PM EDT [facility] Comment: Specimen Hemolyzed. Recommend Redraw If Clinically Indicated. Corrected result: Previously reported as 92 mg/dL on 07/02/2025 at 1408 EDT. BUN LAB CHEMISTRY METHOD 07/02/2025 2:14 PM EDT [facility] Comment: Incorrect patient Corrected result: Previously reported as 9 mg/dL on 07/02/2025 at 1408 EDT. Creatinine LAB CHEMISTRY METHOD 07/02/2025 2:14 PM EDT [facility] Comment: Incorrect patient Corrected result: Previously reported as 0.40 mg/dL on 07/02/2025 at 1408 EDT. eGFR LAB CHEMISTRY METHOD 07/02/2025 2:14 PM EDT [facility] Comment: Calculation based on the Chronic Kidney Disease Epidemiology Collaboration (CKD- EPI) equation refit without adjustment for race. Corrected result: Previously reported as 131 mL/min/1.73m2 on 07/02/2025 at 1408 EDT. BUN/Creatinine Ratio LAB CHEMISTRY METHOD 07/02/2025 2:14 PM EDT [facility] Comment: Incorrect patient Corrected result: Previously reported as 22.5 on 07/02/2025 at 1408 EDT. Calcium LAB CHEMISTRY METHOD 07/02/2025 2:14 PM EDT [facility] Comment: Incorrect patient Corrected result: Previously reported as 9.9 mg/dL on 07/02/2025 at 1408 EDT. AST (SGOT) LAB CHEMISTRY METHOD 07/02/2025 2:14 PM EDT [facility] Comment: Specimen Hemolyzed. Recommend Redraw If Clinically Indicated. Corrected result: Previously reported as 38 unit/L on 07/02/2025 at 1408 EDT. ALT (SGPT) LAB CHEMISTRY METHOD 07/02/2025 2:14 PM EDT [facility] Comment: Incorrect patient Corrected result: Previously reported as 35 unit/L on 07/02/2025 at 1408 EDT. Alkaline Phosphatase LAB CHEMISTRY METHOD 07/02/2025 2:14 PM EDT [facility] Comment: Incorrect patient Corrected result: Previously reported as 99 unit/L on 07/02/2025 at 1408 EDT. Total Protein LAB CHEMISTRY METHOD 07/02/2025 2:14 PM EDT [facility] Comment: Incorrect patient Corrected result: Previously reported as 7.7 g/dL on 07/02/2025 at 1408 EDT. Globulin, Total LAB CHEMISTRY METHOD 07/02/2025 2:14 PM EDT [facility] Comment: Incorrect patient Corrected result: Previously reported as 3.1 g/dL on 07/02/2025 at 1408 EDT. A/G Ratio LAB CHEMISTRY METHOD 07/02/2025 2:14 PM EDT [facility] Comment: Incorrect patient Corrected result: Previously reported as 1.5 on 07/02/2025 at 1408 EDT. Total Bilirubin LAB CHEMISTRY METHOD 07/02/2025 2:14 PM EDT [facility] Comment: Specimen Hemolyzed. Recommend Redraw If Clinically Indicated. Corrected result: Previously reported as 0.6 mg/dL on 07/02/2025 at 1408 EDT. Albumin LAB CHEMISTRY METHOD 07/02/2025 2:14 PM EDT [facility] Comment: Incorrect patient Corrected result: Previously reported as 4.6 g/dL on 07/02/2025 at 1408 EDT. Blood Venous blood specimen / Unknown Venipuncture / Unknown 06/30/2025 11:00 AM EDT 06/30/2025 2:25 PM EDT Ronan Fall MD LAB BLOOD ORDERABLES Edited Result - Final [facility] [address] [place] [address], documented in this encounter Visit Diagnoses Diagnosis Other general symptoms and signs documented in this encounter Additional Health Concerns Assessment Noted Time PHQ-9 Depression Total Score: 0 03/01/20 9:38 AM EDT documented as of this encounter Care Teams Business Office Director Relationship Specialty Start Date End Date Ya Church MD [address] [place] [phone] PCP - General Internal Medicine 03/01/25 documented as of this encounter
--- OUTSIDE RECORDS SUMMARY | 2025-10-08 08:04 | XMS_ITS | Clinical Summary ---
Author Organization [address] Address [address] [place] [phone] Phone Care Team Providers Care System Support Specialist Name Role Phone Ya Church MD Primary Care Provider [phone] Allergies Active Allergy Reactions Criticality Noted Date Comments Latex Rash 07/22/2011 Levonorgestrel-Ethinyl Estrad 2018 Medications clindamycin (CLEOCIN T) 1 % lotion Apply topically 2 (two) times a day. APPLY TOPICALLY 2 TIMES DAILY 60 mL 1 03/01/20 25 Active ciclopirox (PENLAC) 8 % solution Clean the nails with alcohol wipe and apply solution on to the nails and leave it for 7 days. Apply it every 7 days 6.6 mL 03/01/20 25 Active calcium carbonate-vitam in D 600 mg-10 mcg (400 unit) per tablet Take 1 tablet by mouth 1 (one) time each day. 09/03/20 25 Active Senexon-S 8.6-50 mg per tablet Take 2 tablets by mouth 1 (one) time each day. 09/03/20 25 Active tirzepatide, weight loss, (Zepbound) 15 mg/0.5 mL injection Inject 0.5 mL (15 mg total) under the skin every 7 (seven) days. 2 mL 10/05/20 25 026 Active tirzepatide, weight loss, (Zepbound) 10 mg/0.5 mL injectionIndica tions:Class 2 obesity due to excess calories with body mass index (BMI) of 35.0 to 35.9 in adult, unspecified whether serious comorbidity present Inject 0.5 mL (10 mg total) under the skin every 7 (seven) days. 2 mL 2 09/18/20 25 025 Discontinued tirzepatide, weight loss, (Zepbound) 12.5 mg/0.5 mL injection Inject 0.5 mL (12.5 mg total) under the skin every 7 (seven) days. 2 mL 09/18/20 25 025 Discontinued(Do se adjustment) Active Problems Problem Noted Date Diagnosed Date Class 2 obesity 07/10/2025 Tobacco use disorder 10/08/2024 Depressive disorder 10/08/2024 Encounters Date Type Department Care Team Description 09/18/2025 Telephone Bariatric Surgery [address] [phone] Codi Vargas MD 09/11/2025 4:30 PM EST Office Visit Adult [address] [phone] Ya Church MD Thyroid nodule (Primary Dx); Vitamin D deficiency; Elevated LDL cholesterol level; Pes planus of both feet; Alopecia 09/03/2025 10:15 AM EST Office Visit Bariatric Surgery [address] [phone] Codi Vargas MD Class 2 obesity due to excess calories with body mass index (BMI) of 35.0 to 35.9 in adult, unspecified whether serious comorbidity present (Primary Dx) 08/02/2025 Telephone Bariatric Surgery [address] [phone] Codi Vargas MD from Last 3 Months Immunizations Immunization Administration Dates Next Due DTP 09/01/1992, 0,09/01/1989,1987,1988 [id number] (Pentacel) 2mo to less than 5yo 09/01/1989 Hepatitis B (Fiumcfz-F-Mgvcs , Recombivax HB-Adult) 19yo and older 04/23/2021,07/14/2001,03/01/2001,2000 [...] care for your loved ones. For example, early childhood teacher or elderly care for an older [...] Sign Reading Time Taken Comments Blood Pressure 98/64 09/11/2025 4:40 PM EST Pulse 72 09/11/2025 4:40 PM EST Temperature 36.4 C (97.5 F) 09/11/2025 4:40 PM EST Respiratory Rate 16 09/11/2025 4:40 PM EST Oxygen Saturation 98% 09/11/2025 4:40 PM EST Inhaled Oxygen Concentration - - Weight 82.6 kg (182 lb) 09/11/2025 4:40 PM EST Height 152.4 cm (5') 09/11/2025 4:40 PM EST Body Mass Index 35.54 09/11/2025 4:40 PM EST Plan of Treatment Upcoming Encounters Date Type Department Care Team (Late st Contact Info) Description 03/19/2026 9:45 AM EDT Office Visit Bariatric Surgery - [place] [address] [place] [phone] Codi Vargas MD [address] [place] [phone] 05/01/2026 3:00 PM EDT Office Visit Adult Medicine [facility] [place] [address] [place], [place] [phone] Ya Church MD [address] [place], [place] Health Maintenance Due Date Last Done Comments [...] Procedure Name Priority Date/Time Associated Diagnosis Comments EXTERNAL CLINICAL LAB 09/25/2025 EXTERNAL CLINICAL LAB 08/14/2025 EXTERNAL CLINICAL LAB 08/14/2025 CHOLESTEROL, TOTAL Routine 06/30/2025 11 :00 AM EDT Other general symptoms and signs DEPRESSION SCREENING Routine 02/02/2023 PAP SMEAR Routine 10/26/2022 HIV SCREENING Routine 10/23/2019 HEPATITIS C SCREENING Routine 07/01/2017 from Last 3 Months or Most Recently Relevant to Health Maintenance Results * External clinical lab (09/25/2025) Only the most recent of3 resultswithin the time period is included. [facility] BLOOD ORDERABLES Fin al Result * Cholesterol, total (06/30/2025 11:00 AM EDT) [facility] Signature Cholesterol LAB CHEMISTRY METHOD 07/02/2025 2:25 PM EDT [facility] Comment: Incorrect patient Corrected result: Previously reported as 246 mg/dL on 07/02/2025 at 1408 EDT. Blood Venous blood specimen / Unknown Venipuncture / Unknown 06/30/2025 11:00 AM EDT 06/30/2025 2:25 PM EDT Ronan Fall MD LAB BLOOD ORDERABLES Edited Result - Final [facility] [address] [place] [address], [place] [phone] * Depression Screening (02/02/2023) Depression Screening abstracted Historical Provider HEALTH MAINTENANCE Final Result * Pap Smear (10/26/2022) Pathologist [facility] Pap smear abstracted, no interpretation Historical Provider HEALTH MAINTENANCE Final Result * HIV Screening (10/23/2019) [facility] HIV Screening abstracted Historical Provider HEALTH MAINTENANCE Final Result * Hepatitis C Screening (07/01/2017) Pathologist [facility] Hepatitis C Screening abstracted Historical Provider HEALTH MAINTENANCE Final Result from Last 3 Months or Most Recently Relevant to Health Maintenance Insurance [facility] Care Teams System Support Specialist Relationship Specialty Start Date End Date Ya Church MD [address] [place] [phone] PCP - General Internal Medicine 03/01/25
--- NOTE | 2025-10-08 08:08 | A.OFFVIS_ITS ---
Vital Signs 10/08/25 08:12 Height 5 ft Weight 173 lb BMI 33.8 Intake Visit Reasons: Pes planus of both feet Intake Note: Chelle is a 35 year old female who presents today as anew patient for an evaluation of her pes planus. Patient reports she experiences pain all the time and her pain is located through out her whole foot and the sides of her ankles. This has been an ongoing issue for over 10 years. She has tried an arch support shoe insert however she found it to be uncomfortable. No questions or concerns at this time. Allergies latex Allergy (Verified 10/08/25 08:14) rash synthetic estrogen Allergy (Uncoded 10/08/25 08:09) swelling HPI HPI Pes planus of both feet: Details: The patient is a 35 year old female presenting with chronic bilateral foot pain. Chronic Foot Pain: The patient reports a 10-year history of pain in her heels, the outsides of her ankles, and both Achilles tendons. The pain is described as a constant, throbbing sensation that occurs all day. Her Achilles tendons become tender when she relaxes after being on her feet, and her feet swell at nighttime. She previously tried shoe inserts from her mother, who also has flat feet, but found them to be uncomfortable. Pes Planus (Flat Feet): The patient has a known history of flat feet, which her mother also has. She has not had proper treatment for her flat feet in the past. Restless Leg Syndrome: The patient has a history of restless leg syndrome and experiences frequent leg cramps at night, which causes a pulling sensation of her toes when she wakes up. 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 - Functional Status: She has a stand-up desk at work and often stands to alleviate her foot pain, sometimes taking her shoes off. Review of Systems Const All systems reviewed & are unremarkable except as noted in HPI and below Physical Exam Vital Signs: BMI result Body Mass Index 33.8 Extrem Other: *Bilateral Lower Extremity Focused Exam Vascular: DP/PT 2/4, CFT<3s to all digits, TG warm to cool, no pedal edema Derm: no clinical signs of infection Neuro: protective sensation grossly intact to b/l lower extremities MSK: mild tenderness on palpation of bilateral plantar calcaneal tubercle. No pain on windlass mechanism. Mild tenderness on palpation of the Achilles tendon insertion, on ankle dorsiflexion. Mild pain to the peroneal tendons bilaterally, left worse than right, at the retromalleolar region. Mild pain to the peroneal tendons on max inversion. Bilateral ankle dorsiflexion 0 degrees on knee extension, increases to 4-5 degrees on knee flexion. Manual muscle strength 5/5 to all compartments. Biomechanics -- moderate-severe pes planus bilaterally. No too many toes sign. Mild right heel valgus on weight-bearing. Calcaneus invert bilaterally on heel rise. Assessment & Plan Assessment & Plan (1) Pes planus of both feet: Code(s): M21.41 - Flat foot [pes planus] (acquired), right foot; M21.42 - Flat foot [pes planus] (acquired), left foot Category: Medical Plan: * The patient presents with pes planus deformity. The collapsed medial longitudinal arch results in uneven weight distribution across the foot, leading to abnormal loading of the hindfoot and forefoot. This altered biomechanics is contributing to overuse tendinitis of the surrounding soft tis sues. * Recommended powerstep over pronation orthotics. The patient was instructed to break in the inserts gradually, starting with one hour per day and increasing by an hour daily, to allow her body to adapt. * If this approach is unsuccessful, a referral for custom orthotics may be considered at follow-up. * The patient's flat feet are identified as the likely underlying cause of the stress on her foot and ankle, leading to her chronic pain. * The patient was advised that wearing good, supportive sneakers is crucial and is more important than inserts. Specific shoe brands, such as [employer], were re commended. (2) Achilles tendinitis of both lower extremities: Code(s): M76.61 - Achilles tendinitis, right leg; M76.62 - Achilles tendinitis, left leg Category: Medical Plan: * A handout was dispensed for range of motion and stretching exercises to be performed at home at least twice a day * Discussed referral to physical therapy if her symptoms persist (3) Plantar fasciitis, bilateral: Code(s): M72.2 - Plantar fascial fibromatosis Category: Medical Plan: * A handout was dispensed for range of motion and stretching exercises to be performed at home at least twice a day (4) Peroneal tendinitis of both lower legs: Code(s): M76.71 - Peroneal tendinitis, right leg; M76.72 - Peroneal tendinitis, left leg Category: Medical Plan: * Recommended range of motion exercises. A hand-out was dispensed. * Injections are a potential future treatment but are not recommended at this time since she is not experiencing a flare. Coding Level of Care Code New Pt Level 4 (71430) Diagnoses Pes planus of both feet M21.41; M21.42 Achilles tendinitis of both lower extremities M76.61; M76.62 Plantar fasciitis, bilateral M72.2 Peroneal tendinitis of both lower legs M76.71; M76.72 Time Spent (min) 30
[2025-10-08 08:12] VITALS: BMI 33.8
== END 2025-10-08 08:35 | disposition home or self-care (01) ==
PROVIDERS: PCP Internal Medicine; Visit Provider Student in an Organized Health Care Education/Training Program
DX: M21.41 Flat foot [pes planus] (acquired), right foot (principal); M21.42 Flat foot [pes planus] (acquired), left foot; M76.61 Achilles tendinitis, right leg; M76.62 Achilles tendinitis, left leg; M72.2 Plantar fascial fibromatosis; M76.71 Peroneal tendinitis, right leg; M76.72 Peroneal tendinitis, left leg
CPT/HCPCS: 99204

== ENCOUNTER → 2025-10-08 08:01 | Outpatient (BNVA) | payer OTHER, SELFPAY | PROVIDERS: PCP Internal Medicine; Visit Provider Student in an Organized Health Care Education/Training Program | DX: M21.41 Flat foot [pes planus] (acquired), right foot (principal); M76.61 Achilles tendinitis, right leg; M76.62 Achilles tendinitis, left leg; M72.2 Plantar fascial fibromatosis; M76.71 Peroneal tendinitis, right leg; M76.72 Peroneal tendinitis, left leg | CPT/HCPCS: 99202 ==